=== PATIENT | female | born 1945 | race Caucasian/White ===

== ENCOUNTER 2021-10-16 11:43 | Emergency (ER) | payer MEDICARE, SELFPAY ==
--- NOTE | ~2021-10-16 | XR_ITS ---
EXAMINATION: XR shoulder RT min 2V DATE: 10/16/2021 12:31 INDICATION: Right shoulder pain post fall onto steps. TECHNIQUE: AP internally and externally rotated, AP oblique externally rotated and transscapular Y vi ews of the right shoulder were obtained. COMPARISON: None FINDINGS: Normal alignment. No fracture. Widening of the acromioclavicular joint with lateral clavicular contou r suggesting prior distal clavicle excision. Suture anchor at the greater tuberosity suggesting assoc iated rotator cuff repair. Moderate glenohumeral osteoarthritis with inferior predominant nonuniform joint space narrowing and prominent marginal osteophytes about the humeral head. Small dystrophic joes cification along the posterior facet of the greater tuberosity consistent with infraspinatus calcific tendinitis. Visualized portions of the lungs are clear. Moderate thoracic and moderate to severe cer vical spondylosis. IMPRESSION: 1. Moderate right glenohumeral osteoarthritis. No acute osseous abnormalities. 2. Status post distal clavicle resection and likely rotator cuff repair with suggestion of infraspina tus calcific tendinitis. Reviewed, dictated and finalized at location A. IMPRESSION: 1. Moderate right glenohumeral osteoarthritis. No acute osseous abnormalities. 2. Status post distal clavicle resection and likely rotator cuff repair with mills ggestion of infraspinatus calcific tendinitis.
--- NOTE | 2021-10-16 11:58 | ED.FALL ---
HPI - Fall General Chief Complaint: Extremity Injury, Upper Stated Complaint: FELL SHOULDER PAIN Time Seen by Provider: 10/16/21 11:49 Source: patient and RN notes reviewed Mode of arrival: ambulatory Limitations: no limitations History of Present Illness MD complaint: fall Onset (ago): day(s) (1) Fall from: standing Fall witnessed: yes, by bystander Place fall occurred: home Loss of consciousness: none Prolonged down time: no Symptoms prior to fall: none Context: tripped/slipped Location of injury - extremities: Right: shoulder Severity: moderate Quality: dull and aching Associated symptoms (after fall): denies Related Data Home Medications Medication Instructions Recorded Confirmed desloratadine 5 mg tablet 1 tablet PO DAILY 10/16/21 10/16/21 hydrochlorothiazide 25 mg tablet 1 tablet PO DAILY 10/16/21 10/16/21 metoprolol tartrate 25 mg tablet 25 mg PO BID 10/16/21 10/16/21 Allergies Allergy/AdvReac Type Severity Reaction Status Date / Time No Known Allergies Allergy Verified 10/16/21 12:11 Review of Systems Review of Systems: All systems reviewed & are unremarkable except as noted in HPI and below PMFSH Past Medical History Medical History (Updated 10/16/21 @ 13:18 by Edgard Larson MD) Dementia Hyperlipidemia Hypertension Surgical History Surgical History (Updated 10/16/21 @ 12:04 by Edgard Larson MD) H/O colectomy for spontaneous perforation History of nephrectomy S/P rotator cuff repair Social History Social History (Updated 10/16/21 @ 12:04 by Edgard Larson MD) Smoking status: Never smoker Exam Const: General: healthy appearing, no acute distress and alert Nutritional Appearance: well nourished Orientation/consciousness: patient oriented x3 Limitations: no limitations HENMT: Head: normal to inspection Ears: external ears normal Face and sinus: normal facial exam Mouth: Yes moist mucous membranes Eyes: Conjunctivae: conjunctivae normal Pupils: Equal, round and reactive pupils present EOM: EOMs intact bilaterally Neck: Neck: normal visual inspection Resp: Effort & Inspection: normal respiratory effort Auscultation: clear to auscultation bilaterally Cardio: Rate: regular rate Rhythm: regular rhythm GI: GI Palp: Yes Soft to palpation and No Tenderness to palpation present (GI) Auscultation: normal bowel sounds Back/Spine/Pelvis: Cervical Spine: cervical ROM normal Thoracic/Lumbar Spine: thoraco-lumbar ROM normal Skin: General skin exam: normal color Rashes: no rashes Neuro: General: patient oriented x3, moves all extremities, no focal motor deficits and CN's II-XI intact bilaterally Speech: normal speech Gait exam (Neuro): Normal gait present Extrem: General: normal exam except as noted Right upper extremity: shoulder/upper arm normal to inspection, tenderness of the proximal humerus, swelling of the proximal humerus anteriorly and laterally and abnormal ROM pain with active ROM in ABduction Psych: Speech and movement: Normal speech and movement present Affect: Other affect and mood findings present ( pleasantly confused) Attitude: cooperative Course Vital Signs Vital signs: Vital Signs Temperature 36.3 C L 10/16/21 12:03 Pulse Rate 54 L 10/16/21 12:03 Respiratory Rate 16 10/16/21 12:03 Blood Pressure 104/73 10/16/21 12:03 Pulse Oximetry 98 10/16/21 12:03 Oxygen Delivery Room Air 10/16/21 12:03 Temperature 36.9 C 10/16/21 13:33 Pulse Rate 51 L 10/16/21 13:33 Respiratory Rate 16 10/16/21 13:33 Blood Pressure 111/73 10/16/21 13:33 Pulse Oximetry 96 10/16/21 13:33 Oxygen Delivery Room Air 10/16/21 13:33 Discharge Plan Discharge Clinical Impression: Osteoarthritis of right shoulder Patient Disposition: Home, Self-Care Condition: Stable Instructions: Osteoarthritis (ED) Additional Instructions: use Tylenol and or Motrin as needed for pain. Follow-up with your primary care physician any wo
[2021-10-16 12:03] VITALS: BP 104/73; PULSE 54; RESP 16; TEMP 36.3; O2SAT 98
[2021-10-16 13:33] VITALS: BP 111/73; PULSE 51; RESP 16; TEMP 36.9; O2SAT 96
== END 2021-10-16 13:37 | disposition home or self-care (01) ==
PROVIDERS: Emergency Provider Emergency Medicine; PCP Internal Medicine
DX: M19.011 Primary osteoarthritis, right shoulder (principal); E78.5 Hyperlipidemia, unspecified; I10 Essential (primary) hypertension
CPT/HCPCS: 73030; 99283